=== PATIENT | female | born 1970 | race Caucasian/White ===

== ENCOUNTER 2016-09-30 10:52 | Outpatient (CLI) | payer OTHER ==
[~2016-09-30 10:52] MED LIST: SOM350 PO
[2016-09-30 11:44] LABS: BILIRUBIN,URINE NEGATIVE (NEGATIVE); BLOOD, URINE NEGATIVE (NEGATIVE); CLARITY/URINE CLEAR (CLEAR); COLOR,URINE YELLOW (YELLOW); GLUCOSE,URINE NEGATIVE (NEGATIVE); KETONES,URINE NEGATIVE (NEGATIVE); LEUKOCYTE ESTERASE ,URINE NEGATIVE (NEGATIVE); NITRITE, URINE NEGATIVE (NEGATIVE); PH,URINE 7.5 (5.0-8.0); PROTEIN URINE TRACE (NEGATIVE)
[2016-09-30 11:47] LABS: BASOPHILS % (AUTO) 0.6 % (0.0-2.0); EOSINOPHILS # (AUTO) 0.1 K/uL (0.0-0.4); EOSINOPHILS % (AUTO) 0.7 % (0.0-4.0); HEMATOCRIT 37.2 % (36-48); HEMOGLOBIN 12.2 g/dL (12.0-16.0); LYMPHOCYTES # (AUTO) 1.8 K/uL (1.0-5.5); LYMPHOCYTES % (AUTO) 24.3 % (20.5-51.5); MEAN CORPUSCULAR HEMOGLOBIN 26 pg (27-31); MEAN CORPUSCULAR HGB CONC 33 % (32-36); MEAN CORPUSCULAR VOLUME 78 fL (79.0-98.0); MONOCYTES # (AUTO) 0.5 K/uL (0.0-1.0); MONOCYTES % (AUTO) 6.6 % (1.7-9.3); NEUTROPHILS # (AUTO) 4.9 K/uL (1.8-7.7); NEUTROPHILS % (AUTO) 67.8 % (40.0-70.0); PLATELET COUNT (AUTO) 263 K/uL (130-430); RED BLOOD CELL COUNT(AUTO) 4.75 MIL/uL (4.2-6.2); RED CELL DISTRIBUTION WIDTH 14.9 % (9.0-15.0); WHITE BLOOD COUNT (AUTO) 7.3 K/uL (4.8-10.8)
[2016-09-30 12:24] LABS: ERYTHROCYTE SEDIMENTATION RATE 14 MM/HR (0-20)
[2016-09-30 12:36] LABS: CALCIUM 8.9 mg/dL (8.4-11.0); CREATININE 0.71 mg/dL (0.55-1.30); THYROID STIMULATING HORMONE 0.57 uIu/mL (0.34-4.82); TOTAL BILIRUBIN 0.3 mg/dL (0.0-1.0); TOTAL PROTEIN, SERUM 8.1 g/dL (6.4-8.3); URIC ACID 4.8 mg/dL (2.4-7.0)
[2016-10-02 13:25] LABS: HEMOGLOBIN A1C 5.7 % (4.8-5.6)
== END 2016-09-30 19:46 | disposition home or self-care (01) ==
LOC: SRD 10:52
PROVIDERS: ATTEND Internal Medicine
DX: Z00.01 Encounter for general adult medical examination with abnormal findings (principal); M41.84 Other forms of scoliosis, thoracic region; R79.89 Other specified abnormal findings of blood chemistry
CPT/HCPCS: 36415; 72082; 80053; 80061; 81003; 82306; 82607; 83036; 83735-TC; 84443-TC; 84550-TC; 85025; 85651-TC

== ENCOUNTER 2017-02-02 15:35 | Emergency (ER) | payer OTHER ==
[~2017-02-02] VITALS: Ht 167.6 cm; Wt 79.4 kg
[2017-02-02 15:47] VITALS: BP_SYST 155
[2017-02-02] MEDS ORDERED: MECLIZINE HCL 25 MG TABLET (ANITVERT) PO ONE (16:15)
[2017-02-02] MEDS ORDERED: traMADol HCL HCL 50 MG TABLET (ULTRAM) PO ONE (17:15)
[2017-02-02 17:20] VITALS: BP_SYST 153
== END 2017-02-02 17:20 | disposition home or self-care (01) ==
LOC: SED 15:35
DX: H81.10 Benign paroxysmal vertigo, unspecified ear (principal); R51 Headache; J45.909 Unspecified asthma, uncomplicated; I10 Essential (primary) hypertension; W01.10XA Fall on same level from slipping, tripping and stumbling with subsequent striking against unspecified object, initial encounter; Y93.89 Activity, other specified; Y92.89 Other specified places as the place of occurrence of the external cause; Y99.8 Other external cause status
CPT/HCPCS: 70450; 99284; J8597

== ENCOUNTER 2017-04-09 12:14 | Outpatient (CLI) | payer OTHER ==
[2017-04-09 13:01] LABS: BASOPHILS # (AUTO) 0.1 K/uL (0.0-0.2); BASOPHILS % (AUTO) 0.8 % (0.0-2.0); EOSINOPHILS # (AUTO) 0.1 K/uL (0.0-0.4); EOSINOPHILS % (AUTO) 0.7 % (0.0-4.0); HEMATOCRIT 35.3 % (36-48); HEMOGLOBIN 11.6 g/dL (12.0-16.0); LYMPHOCYTES # (AUTO) 1.6 K/uL (1.0-5.5); LYMPHOCYTES % (AUTO) 20.4 % (20.5-51.5); MEAN CORPUSCULAR HEMOGLOBIN 25 pg (27-31); MEAN CORPUSCULAR HGB CONC 33 % (32-36); MEAN CORPUSCULAR VOLUME 77 fL (79.0-98.0); MONOCYTES # (AUTO) 0.4 K/uL (0.0-1.0); MONOCYTES % (AUTO) 5.7 % (1.7-9.3); NEUTROPHILS # (AUTO) 5.7 K/uL (1.8-7.7); NEUTROPHILS % (AUTO) 72.4 % (40.0-70.0); PLATELET COUNT (AUTO) 283 K/uL (130-430); RED BLOOD CELL COUNT(AUTO) 4.59 MIL/uL (4.2-6.2); RED CELL DISTRIBUTION WIDTH 16.8 % (9.0-15.0); WHITE BLOOD COUNT (AUTO) 7.9 K/uL (4.8-10.8)
[2017-04-09 13:18] LABS: ALANINE AMINOTRANSFERASE 27 U/L (12-78); ANION GAP 3 (5-15); ASPARTATE AMINOTRANSFERASE 24 U/L (10-37); C-REACTIVE PROTEIN QUANT < 0.2 mg/dL (0-0.5); CALCIUM 9.4 mg/dL (8.4-11.0); CHLORIDE 104 mmol/L (98-107); CHOLESTEROL 198 mg/dL (<200); CREATININE 0.77 mg/dL (0.55-1.30); GLUCOSE 95 mg/dL (70-99); HDL CHOLESTEROL 56 mg/dL (>55); LDL CHOLESTEROL 122 mg/dL (<100); POTASSIUM 4.5 mmol/L (3.5-5.1); SODIUM SERUM 137 mmol/L (136-145); TOTAL BILIRUBIN 0.3 mg/dL (0.0-1.0); TRIGLYCERIDES 119 mg/dL (30-150); UREA NITROGEN, BLOOD 13 mg/dL (8-21); URIC ACID 4.6 mg/dL (2.4-7.0)
[2017-04-09 13:25] LABS: GFR AFRICAN AMERICAN 103 mL/min (>90)
[2017-04-09 13:53] LABS: ERYTHROCYTE SEDIMENTATION RATE 16 MM/HR (0-20)
[2017-04-10 08:06] LABS: HEMOGLOBIN A1C 5.5 % (4.8-5.6)
== END 2017-04-09 20:09 | disposition home or self-care (01) ==
LOC: SLB 12:14
PROVIDERS: ATTEND Orthopaedic Surgery
DX: M17.0 Bilateral primary osteoarthritis of knee (principal)
CPT/HCPCS: 36415; 80053; 80061; 82306; 83036; 84550-TC; 85025; 85651-TC; 86140

== ENCOUNTER 2017-07-21 09:28 | Emergency (ER) | payer OTHER ==
[~2017-07-21] VITALS: Ht 167.6 cm; Wt 81.6 kg
[2017-07-21 09:28] VITALS: BP_SYST 142
--- NOTE | 2017-07-21 09:35 | NUR ---
Pt placed in bed 7
--- NOTE | 2017-07-21 09:40 | NUR ---
Pt complains of sore throat, cough, fever, body aches since Sunday. Pt states was cleaning Sunday night with mold and did not wear a mask, then next day was feeling bad. Denies n/v or cp, states has some SOB when coughing. No other injuries/complaints per pt or noted.
--- NOTE | 2017-07-21 09:40 | NUR ---
ER at bedside examining patient.
--- NOTE | 2017-07-21 09:50 | NUR ---
RT is at bedside giving a breathing treatment, tolerated well
--- NOTE | 2017-07-21 09:59 | NUR ---
Medication was given to pt, tolerated well
[2017-07-21] MEDS ORDERED: IPRATROPIUM BROM 0.5 MG/2.5 ML VIAL.NEB (ATROVENT) IH ONE (10:00)
[2017-07-21] MEDS ORDERED: ALBUTEROL SULFATE 0.083% 2.5 MG/3 ML VIAL.NEB IH ONE (10:00)
[2017-07-21] MEDS ORDERED: methylPREDNISolone SOD SUCC/PF 62.5 MG/ML VIAL IM ONE (10:00)
[2017-07-21 10:06] LABS: BASOPHILS % (AUTO) 0.5 % (0.0-2.0); EOSINOPHILS % (AUTO) 0.2 % (0.0-4.0); HEMATOCRIT 36.3 % (36-48); HEMOGLOBIN 12.4 g/dL (12.0-16.0); LYMPHOCYTES # (AUTO) 0.7 K/uL (1.0-5.5); LYMPHOCYTES % (AUTO) 6.9 % (20.5-51.5); MEAN CORPUSCULAR HEMOGLOBIN 26 pg (27-31); MEAN CORPUSCULAR HGB CONC 34 % (32-36); MEAN CORPUSCULAR VOLUME 77 fL (79.0-98.0); MONOCYTES # (AUTO) 0.5 K/uL (0.0-1.0); MONOCYTES % (AUTO) 5.4 % (1.7-9.3); NEUTROPHILS # (AUTO) 8.7 K/uL (1.8-7.7); PLATELET COUNT (AUTO) 269 K/uL (130-430); RED CELL DISTRIBUTION WIDTH 15.1 % (9.0-15.0); WHITE BLOOD COUNT (AUTO) 9.9 K/uL (4.8-10.8)
[2017-07-21 10:11] LABS: INFLUENZA A&B ANTIGEN SCREEN NEGATIVE FOR A & B (NEGATIVE); STREPTOCOCCUS A SCREEN (RAPID) NEGATIVE (NEGATIVE)
[2017-07-21 10:14] LABS: CALCIUM 9.2 mg/dL (8.4-11.0); CREATININE 0.67 mg/dL (0.55-1.30); POTASSIUM 4.3 mmol/L (3.5-5.1)
[2017-07-21 10:19] LABS: ALBUMIN 3.8 g/dL (3.4-4.8); TOTAL BILIRUBIN 0.3 mg/dL (0.0-1.0)
--- NOTE | 2017-07-21 10:25 | NUR ---
Tylenol was given for temp of 100.0, Dr Hayden is aware and pt will be sent with ATB and tylenol
--- NOTE | 2017-07-21 10:29 | NUR ---
Patient given written and verbal discharge instructions and verbalizes understanding. ER MD discussed with patient the results and treatment provided. Patient in stable condition. ID arm band removed. Rx of tylenol, prednisone and zithromax given. Patient educated on pain management and to follow up with PMD. Pain Scale 3. Opportunity for questions provided and answered.
[2017-07-21] MEDS ORDERED: ACETAMINOPHEN 500 MG TABLET PO ONE (10:30)
[2017-07-21 10:31] VITALS: BP_SYST 132
== END 2017-07-21 10:31 | disposition home or self-care (01) ==
LOC: SED 09:28
DX: J01.90 Acute sinusitis, unspecified (principal); I10 Essential (primary) hypertension; J45.909 Unspecified asthma, uncomplicated; Z88.8 Allergy status to other drugs, medicaments and biological substances
CPT/HCPCS: 36415; 80053; 85025; 86403; 86710; 87081; 94640; 96372; 99284; J2930

== ENCOUNTER 2017-09-25 11:22 | Outpatient (CLI) | payer OTHER | END 2017-09-25 22:13 | disposition home or self-care (01) | LOC: SMA 11:22 | PROVIDERS: ATTEND Specialist | DX: Z12.31 Encounter for screening mammogram for malignant neoplasm of breast (principal) | CPT/HCPCS: 77067 ==

== ENCOUNTER 2017-09-26 10:34 | Outpatient (CLI) | payer OTHER | END 2017-09-26 20:36 | disposition home or self-care (01) | LOC: SUS 10:34 | PROVIDERS: ATTEND Specialist | DX: N92.0 Excessive and frequent menstruation with regular cycle (principal); I10 Essential (primary) hypertension; J45.909 Unspecified asthma, uncomplicated; N92.6 Irregular menstruation, unspecified | CPT/HCPCS: 76830-TC; 76857 ==

== ENCOUNTER 2018-03-15 06:25 | Outpatient (CLI) | payer OTHER ==
[2018-03-15 08:43] LABS: HEMATOCRIT 36.7 % (36-48); HEMOGLOBIN 12.3 g/dL (12.0-16.0); RED BLOOD CELL COUNT(AUTO) 4.51 MIL/uL (4.2-6.2); WHITE BLOOD COUNT (AUTO) 8.3 K/uL (4.8-10.8)
[2018-03-15 08:44] LABS: BASOPHILS % (AUTO) 1.1 % (0.0-2.0); EOSINOPHILS % (AUTO) 1.5 % (0.0-4.0); LYMPHOCYTES # (AUTO) 2.1 K/uL (1.0-5.5); LYMPHOCYTES % (AUTO) 24.9 % (20.5-51.5); MEAN CORPUSCULAR HEMOGLOBIN 27 pg (27-31); MEAN CORPUSCULAR HGB CONC 34 % (32-36); MEAN CORPUSCULAR VOLUME 81 fL (79.0-98.0); MONOCYTES # (AUTO) 0.5 K/uL (0.0-1.0); MONOCYTES % (AUTO) 6.5 % (1.7-9.3); NEUTROPHILS # (AUTO) 5.5 K/uL (1.8-7.7); PLATELET COUNT (AUTO) 331 K/uL (130-430); RED CELL DISTRIBUTION WIDTH 14.4 % (9.0-15.0)
[2018-03-15 08:45] LABS: BASOPHILS # (AUTO) 0.1 K/uL (0.0-0.2); EOSINOPHILS # (AUTO) 0.1 K/uL (0.0-0.4)
[2018-03-15 08:49] LABS: POTASSIUM 4.3 mmol/L (3.5-5.1)
[2018-03-15 08:51] LABS: ALBUMIN 3.6 g/dL (3.4-4.8); CALCIUM 9.1 mg/dL (8.4-11.0); CREATININE 0.79 mg/dL (0.55-1.30); TOTAL BILIRUBIN 0.3 mg/dL (0.0-1.0)
[2018-03-15 08:52] LABS: THYROID STIMULATING HORMONE 4.43 uIu/mL (0.34-4.82)
[2018-03-16 07:35] LABS: HEMOGLOBIN A1C 5.5 % (4.8-5.6)
== END 2018-03-15 19:15 | disposition home or self-care (01) ==
LOC: SLB 06:25
PROVIDERS: ATTEND Internal Medicine
DX: Z00.00 Encounter for general adult medical examination without abnormal findings (principal)
CPT/HCPCS: 36415; 80053; 80061; 82306; 82607; 83036; 84443-TC; 85025

== ENCOUNTER 2018-04-18 12:32 | Emergency (ER) | payer OTHER ==
[~2018-04-18] VITALS: Ht 170.2 cm; Wt 86.2 kg
[2018-04-18 12:35] VITALS: BP_SYST 145
[2018-04-18] MEDS ORDERED: cefTRIAXone 1 GM IVPB PREMIX 50 ML IV ONE (14:45)
[2018-04-18] MEDS ORDERED: ONDANSETRON HCL 4 MG/2 ML VIAL IVP ONE (14:45)
[2018-04-18] MEDS ORDERED: ALBUTEROL SULFATE 0.083% 2.5 MG/3 ML VIAL.NEB IH ONE (14:45)
[2018-04-18] MEDS ORDERED: IPRATROPIUM BROM 0.5 MG/2.5 ML VIAL.NEB (ATROVENT) IH ONE (14:45)
[2018-04-18] MEDS ORDERED: MORPHINE 2 MG/ML INJ. SYRINGE IVP ONE (14:45)
[2018-04-18 15:14] LABS: BASOPHILS % (AUTO) 0.5 % (0.0-2.0); EOSINOPHILS # (AUTO) 0.1 K/uL (0.0-0.4); EOSINOPHILS % (AUTO) 0.8 % (0.0-4.0); HEMATOCRIT 34.6 % (36-48); HEMOGLOBIN 11.4 g/dL (12.0-16.0); LYMPHOCYTES # (AUTO) 1.2 K/uL (1.0-5.5); LYMPHOCYTES % (AUTO) 17.1 % (20.5-51.5); MEAN CORPUSCULAR HEMOGLOBIN 25 pg (27-31); MEAN CORPUSCULAR HGB CONC 33 % (32-36); MEAN CORPUSCULAR VOLUME 76 fL (79.0-98.0); MONOCYTES # (AUTO) 0.7 K/uL (0.0-1.0); MONOCYTES % (AUTO) 9.9 % (1.7-9.3); NEUTROPHILS # (AUTO) 5.2 K/uL (1.8-7.7); NEUTROPHILS % (AUTO) 71.7 % (40.0-70.0); PLATELET COUNT (AUTO) 255 K/uL (130-430); RED BLOOD CELL COUNT(AUTO) 4.55 MIL/uL (4.2-6.2); RED CELL DISTRIBUTION WIDTH 15.1 % (9.0-15.0); WHITE BLOOD COUNT (AUTO) 7.2 K/uL (4.8-10.8)
[2018-04-18 15:15] LABS: BILIRUBIN,URINE NEGATIVE (NEGATIVE); BLOOD, URINE NEGATIVE (NEGATIVE); CLARITY/URINE CLEAR (CLEAR); COLOR,URINE YELLOW (YELLOW); GLUCOSE,URINE NEGATIVE (NEGATIVE); KETONES,URINE NEGATIVE (NEGATIVE); LEUKOCYTE ESTERASE ,URINE NEGATIVE (NEGATIVE); NITRITE, URINE NEGATIVE (NEGATIVE); PH,URINE 5.5 (5.0-8.0); PROTEIN URINE NEGATIVE (NEGATIVE); UROBILINOGEN,URINE 0.2 (0.2-1.0)
[2018-04-18 15:29] LABS: CALCIUM 8.6 mg/dL (8.4-11.0); CREATININE 0.62 mg/dL (0.55-1.30); POTASSIUM 4.2 mmol/L (3.5-5.1)
[2018-04-18 15:32] LABS: INR 0.9 (0.8-1.2); PROTHROMBIN TIME 9.3 SECS (9.5-12.5)
[2018-04-18 15:39] LABS: ALBUMIN 3.6 g/dL (3.4-4.8); TOTAL BILIRUBIN 0.2 mg/dL (0.0-1.0)
[2018-04-18] MEDS ORDERED: MORPHINE 4 MG/ML INJ. SYRINGE IVP ONE (16:00)
[2018-04-18] MEDS ORDERED: PREDNISONE 20 MG TABLET PO ONE (16:15)
[2018-04-18] MEDS ORDERED: PREDNISONE 20 MG TABLET ONE (16:22)
[2018-04-18 16:41] VITALS: BP_SYST 145
== END 2018-04-18 16:41 | disposition home or self-care (01) ==
LOC: SED 12:32
DX: J45.901 Unspecified asthma with (acute) exacerbation (principal); H66.90 Otitis media, unspecified, unspecified ear; I10 Essential (primary) hypertension; Z88.8 Allergy status to other drugs, medicaments and biological substances
CPT/HCPCS: 36415; 71045; 80053; 81003; 83605; 81025; 84702; 85025; 85610; 85730; 87040; 87086; 94640; 96361; 96365; 96375; 99284; J0696; J2270; J2405; J7512; J7613

== ENCOUNTER 2018-06-04 08:59 | Outpatient (CLI) | payer OTHER ==
[2018-06-04 10:02] LABS: ALBUMIN 3.9 g/dL (3.4-4.8); C-REACTIVE PROTEIN QUANT 0.7 mg/dL (0-0.5); CALCIUM 9.6 mg/dL (8.4-11.0); CREATININE 0.71 mg/dL (0.55-1.30); POTASSIUM 4.1 mmol/L (3.5-5.1); TOTAL BILIRUBIN 0.3 mg/dL (0.0-1.0)
[2018-06-04 10:04] LABS: RED BLOOD CELL COUNT(AUTO) 4.97 MIL/uL (4.2-6.2); WHITE BLOOD COUNT (AUTO) 6.5 K/uL (4.8-10.8)
[2018-06-04 10:06] LABS: HEMATOCRIT 38.4 % (36-48); HEMOGLOBIN 12.3 g/dL (12.0-16.0); LYMPHOCYTES % (AUTO) 27.7 % (20.5-51.5); MEAN CORPUSCULAR HEMOGLOBIN 25 pg (27-31); MEAN CORPUSCULAR HGB CONC 32 % (32-36); MEAN CORPUSCULAR VOLUME 77 fL (79.0-98.0); MONOCYTES % (AUTO) 7.5 % (1.7-9.3); PLATELET COUNT (AUTO) 268 K/uL (130-430); RED CELL DISTRIBUTION WIDTH 16.4 % (9.0-15.0)
[2018-06-04 10:07] LABS: BASOPHILS # (AUTO) 0.1 K/uL (0.0-0.2); BASOPHILS % (AUTO) 1.1 % (0.0-2.0); EOSINOPHILS # (AUTO) 0.2 K/uL (0.0-0.4); EOSINOPHILS % (AUTO) 2.3 % (0.0-4.0); LYMPHOCYTES # (AUTO) 1.6 K/uL (1.0-5.5); MONOCYTES # (AUTO) 0.5 K/uL (0.0-1.0); NEUTROPHILS # (AUTO) 4.2 K/uL (1.8-7.7)
[2018-06-04 10:44] LABS: NEUTROPHILS % (AUTO) 64.4 % (40.0-70.0)
[2018-06-04 10:46] LABS: ERYTHROCYTE SEDIMENTATION RATE 14 MM/HR (0-20)
[2018-06-05 09:28] LABS: RA LATEX TURBID 10.6 IU/mL (0.0-13.9)
[2018-06-05 18:10] LABS: ANTI NUCLEAR AB WITH REFLEX Negative (Negative)
== END 2018-06-05 07:09 | disposition home or self-care (01) ==
LOC: SLB 08:59
PROVIDERS: ATTEND Internal Medicine
DX: I10 Essential (primary) hypertension (principal); M54.40 Lumbago with sciatica, unspecified side; E55.9 Vitamin D deficiency, unspecified
CPT/HCPCS: 36415; 80053; 82306; 83735-TC; 85025; 85651-TC; 86038; 86140; 86431

== ENCOUNTER 2018-10-19 11:10 | Outpatient (CLI) | payer OTHER ==
[2018-10-19 12:20] LABS: BASOPHILS # (AUTO) 0.1 K/uL (0.0-0.2); EOSINOPHILS # (AUTO) 0.1 K/uL (0.0-0.4); EOSINOPHILS % (AUTO) 1.6 % (0.0-4.0); HEMOGLOBIN 11.7 g/dL (12.0-16.0); LYMPHOCYTES # (AUTO) 1.9 K/uL (1.0-5.5); LYMPHOCYTES % (AUTO) 34.6 % (20.5-51.5); MEAN CORPUSCULAR HEMOGLOBIN 26 pg (27-31); MEAN CORPUSCULAR HGB CONC 33 % (32-36); MEAN CORPUSCULAR VOLUME 79 fL (79.0-98.0); MONOCYTES # (AUTO) 0.4 K/uL (0.0-1.0); MONOCYTES % (AUTO) 8.1 % (1.7-9.3); NEUTROPHILS % (AUTO) 54.7 % (40.0-70.0); PLATELET COUNT (AUTO) 240 K/uL (130-430); RED BLOOD CELL COUNT(AUTO) 4.59 MIL/uL (4.2-6.2); RED CELL DISTRIBUTION WIDTH 17.7 % (9.0-15.0); WHITE BLOOD COUNT (AUTO) 5.4 K/uL (4.8-10.8)
[2018-10-19 13:01] LABS: ALBUMIN 3.6 g/dL (3.4-4.8); C-REACTIVE PROTEIN QUANT 0.3 mg/dL (0-0.5); CALCIUM 9.2 mg/dL (8.4-11.0); CREATININE 0.64 mg/dL (0.55-1.30); POTASSIUM 4.8 mmol/L (3.5-5.1); THYROID STIMULATING HORMONE 1.81 uIu/mL (0.34-4.82); TOTAL BILIRUBIN 0.4 mg/dL (0.0-1.0); URIC ACID 3.6 mg/dL (2.4-7.0)
[2018-10-19 13:16] LABS: ERYTHROCYTE SEDIMENTATION RATE 13 MM/HR (0-20)
[2018-10-20 08:07] LABS: RA LATEX TURBID <10.0 IU/mL (0.0-13.9); THYROID PEROXIDASE (TPO) AB 12 IU/mL (0-34)
[2018-10-22 09:06] LABS: COMPLEMENT C4, SERUM 32 mg/dL (14-44)
[2018-10-22 12:06] LABS: ANTI-MITOCHONDRIAL AB <20.0 Units (0.0-20.0); ANTI-PARIETAL CELL AB 3.3 Units (0.0-20.0); ANTI-SMOOTH MUSCLE AB 9 Units (0-19)
[2018-10-22 19:09] LABS: CCP IgG AB 6 units (0-19)
[2018-10-22 20:06] LABS: ANTI-DNA(DS) AB, QN <1 IU/mL (0-9); ANTI-NUCLEAR AB DIRECT Negative (Negative); SMITH ABS <0.2 AI (0.0-0.9)
== END 2018-10-19 14:00 | disposition home or self-care (01) ==
LOC: SLB 11:10
PROVIDERS: ATTEND Internal Medicine
DX: E55.9 Vitamin D deficiency, unspecified (principal); E56.9 Vitamin deficiency, unspecified; M19.90 Unspecified osteoarthritis, unspecified site; J45.909 Unspecified asthma, uncomplicated
CPT/HCPCS: 36415; 80053; 80061; 82306; 82607; 83735-TC; 84443-TC; 84550-TC; 85025; 85651-TC; 86140; 86200; 86431

== ENCOUNTER 2019-01-21 13:36 | Emergency (ER) | payer OTHER ==
[~2019-01-21] VITALS: Ht 170.2 cm; Wt 86.2 kg
[2019-01-21 13:36] VITALS: BP_SYST 137
--- NOTE | 2019-01-21 13:40 | NUR ---
Patient triaged and placed in waiting room. VSS and patient appears in no acute distress at this time. Accompanied by SPOUSE, awaiting available bed, and MD notified of need for MSE.
--- NOTE | 2019-01-21 14:32 | NUR ---
BROUGHT BACK TO BED #4 AND REPORT GIVEN TO LILIYA
--- NOTE | 2019-01-21 14:48 | NUR ---
Patient is awake, alert, and oriented x4. Patient reports swollen left lower jaw since yesterday, no it has moved over to right lower jaw. Patient denies nausea, vomiting and diarrhea.
--- NOTE | 2019-01-21 14:55 | NUR ---
ER [place] Mejia examining patient.
[2019-01-21] MEDS ORDERED: AMOXICILLIN/CLAVULANATE POTASSIUM 875 MG TABLET PO ONE (15:00)
[2019-01-21] MEDS ORDERED: HYDROcodone/ACETAMIN 7.5-325 MG TAB PO ONE (15:00)
[2019-01-21] MEDS ORDERED: KETOROLAC TROMETHAMINE 60 MG/2 ML VIAL IM ONE (15:00)
[2019-01-21 15:10] VITALS: BP_SYST 128
--- NOTE | 2019-01-21 15:10 | NUR ---
Patient given written and verbal discharge instructions and verbalizes understanding. ER MD discussed with patient the results and treatment provided. Patient in stable condition. ID arm band removed. Rx of augmentin, motrin, norco given. Patient educated on pain management and to follow up with PMD. Pain Scale 8/10, FLASH WELDER Jackie aware. Opportunity for questions provided and answered. Medication side effect fact sheet provided.
== END 2019-01-21 15:10 | disposition home or self-care (01) ==
LOC: SED 13:36
DX: K11.21 Acute sialoadenitis (principal); I10 Essential (primary) hypertension; J45.909 Unspecified asthma, uncomplicated; Z79.899 Other long term (current) drug therapy
CPT/HCPCS: 96372; 99283; J1885

== ENCOUNTER 2019-04-12 17:41 | Outpatient (CLI) | payer OTHER ==
[2019-04-12 18:19] LABS: BENZODIAZEPINE, URINE POSITIVE (NEG <=150)
[2019-04-12 18:33] LABS: BARBITURATE, URINE NEGATIVE (NEG <=200); CANNABINOID, URINE NEGATIVE (NEG <=50); COCAINE, URINE NEGATIVE (NEG <=150); METHAMPHETAMINES SCREEN,URINE NEGATIVE (NEG <=500); OPIATE, URINE NEGATIVE (NEG <=100); PHENCYCLIDINE SCREEN,URINE NEGATIVE (NEG <=25); URINE AMPHETAMINE NEGATIVE (NEG <=500); URINE METHADONE POSITIVE (NEG <=200)
[2019-04-12 18:34] LABS: UR TRICYCLIC ANTIDEPRESSANTS NEGATIVE (NEG <=300); URINE OXYCODONE SCREEN NEGATIVE (NEG <=100); URINE PROPOXYPHENE SCREEN NEGATIVE (NEG <=300)
== END 2019-04-12 20:48 | disposition home or self-care (01) ==
LOC: SLB 17:41
DX: G89.4 Chronic pain syndrome (principal); M25.569 Pain in unspecified knee
CPT/HCPCS: 80307

== ENCOUNTER 2019-08-29 12:41 | Outpatient (CLI) | payer OTHER ==
[2019-08-29 13:29] LABS: BARBITURATE, URINE NEGATIVE (NEG <=200); BENZODIAZEPINE, URINE NEGATIVE (NEG <=150); CANNABINOID, URINE NEGATIVE (NEG <=50); COCAINE, URINE NEGATIVE (NEG <=150); METHAMPHETAMINES SCREEN,URINE NEGATIVE (NEG <=500); OPIATE, URINE POSITIVE (NEG <=100); PHENCYCLIDINE SCREEN,URINE NEGATIVE (NEG <=25); UR TRICYCLIC ANTIDEPRESSANTS NEGATIVE (NEG <=300); URINE AMPHETAMINE NEGATIVE (NEG <=500); URINE METHADONE POSITIVE (NEG <=200); URINE OXYCODONE SCREEN NEGATIVE (NEG <=100); URINE PROPOXYPHENE SCREEN NEGATIVE (NEG <=300)
== END 2019-08-29 21:11 | disposition home or self-care (01) ==
LOC: SLB 12:41
PROVIDERS: ATTEND Anesthesiology Pain Medicine
DX: M54.5 Low back pain (principal)
CPT/HCPCS: 80307

== ENCOUNTER 2020-01-05 12:06 | Outpatient (CLI) | payer OTHER ==
[2020-01-05 12:41] LABS: BASOPHILS % (AUTO) 0.7 % (0.0-2.0); EOSINOPHILS # (AUTO) 0.1 K/uL (0.0-0.4); EOSINOPHILS % (AUTO) 1.6 % (0.0-4.0); HEMATOCRIT 38.2 % (36-48); HEMOGLOBIN 12.4 g/dL (12.0-16.0); LYMPHOCYTES # (AUTO) 1.7 K/uL (1.0-5.5); LYMPHOCYTES % (AUTO) 23.8 % (20.5-51.5); MEAN CORPUSCULAR HEMOGLOBIN 26 pg (27-31); MEAN CORPUSCULAR HGB CONC 33 % (32-36); MEAN CORPUSCULAR VOLUME 80 fL (79.0-98.0); MONOCYTES # (AUTO) 0.7 K/uL (0.0-1.0); MONOCYTES % (AUTO) 8.9 % (1.7-9.3); NEUTROPHILS # (AUTO) 4.8 K/uL (1.8-7.7); PLATELET COUNT (AUTO) 272 K/uL (130-430); RED CELL DISTRIBUTION WIDTH 15.8 % (9.0-15.0); WHITE BLOOD COUNT (AUTO) 7.3 K/uL (4.8-10.8)
[2020-01-05 12:51] LABS: BARBITURATE, URINE NEGATIVE (NEG <=200); BENZODIAZEPINE, URINE NEGATIVE (NEG <=150); CANNABINOID, URINE NEGATIVE (NEG <=50); COCAINE, URINE NEGATIVE (NEG <=150); METHAMPHETAMINES SCREEN,URINE NEGATIVE (NEG <=500); URINE AMPHETAMINE NEGATIVE (NEG <=500)
[2020-01-05 12:52] LABS: OPIATE, URINE POSITIVE (NEG <=100); PHENCYCLIDINE SCREEN,URINE NEGATIVE (NEG <=25); UR TRICYCLIC ANTIDEPRESSANTS NEGATIVE (NEG <=300); URINE OXYCODONE SCREEN NEGATIVE (NEG <=100); URINE PROPOXYPHENE SCREEN NEGATIVE (NEG <=300)
[2020-01-05 12:54] LABS: URINE METHADONE POSITIVE (NEG <=200)
[2020-01-05 14:07] LABS: POTASSIUM 4.7 mmol/L (3.5-5.1)
[2020-01-05 14:08] LABS: CALCIUM 8.9 mg/dL (8.4-11.0); CREATININE 0.73 mg/dL (0.55-1.30); THYROID STIMULATING HORMONE 2.14 uIu/mL (0.36-3.74); TOTAL BILIRUBIN 0.3 mg/dL (0.0-1.0); URIC ACID 5.1 mg/dL (2.4-7.0)
[2020-01-06 09:01] LABS: HEMOGLOBIN A1C 5.8 % (4.8-5.6)
== END 2020-01-05 20:52 | disposition home or self-care (01) ==
LOC: SDS 12:06
PROVIDERS: ATTEND Internal Medicine
DX: I10 Essential (primary) hypertension (principal); E66.09 Other obesity due to excess calories; E55.9 Vitamin D deficiency, unspecified; L60.8 Other nail disorders; M54.5 Low back pain
CPT/HCPCS: 36415; 80053; 80061; 80307; 82306; 82607; 83036; 83735-TC; 84443-TC; 84550-TC; 85025

== ENCOUNTER 2020-04-24 10:13 | Outpatient (CLI) | payer OTHER ==
[2020-04-24 11:16] LABS: BASOPHILS # (AUTO) 0.1 K/uL (0.0-0.2); BASOPHILS % (AUTO) 0.9 % (0.0-2.0); EOSINOPHILS # (AUTO) 0.1 K/uL (0.0-0.4); EOSINOPHILS % (AUTO) 1.5 % (0.0-4.0); HEMATOCRIT 35.5 % (36-48); HEMOGLOBIN 11.5 g/dL (12.0-16.0); LYMPHOCYTES # (AUTO) 1.2 K/uL (1.0-5.5); LYMPHOCYTES % (AUTO) 19.1 % (20.5-51.5); MEAN CORPUSCULAR HEMOGLOBIN 25 pg (27-31); MEAN CORPUSCULAR HGB CONC 32 % (32-36); MEAN CORPUSCULAR VOLUME 78 fL (79.0-98.0); MONOCYTES # (AUTO) 0.5 K/uL (0.0-1.0); MONOCYTES % (AUTO) 8.7 % (1.7-9.3); NEUTROPHILS # (AUTO) 4.3 K/uL (1.8-7.7); NEUTROPHILS % (AUTO) 69.8 % (40.0-70.0); PLATELET COUNT (AUTO) 253 K/uL (130-430); RED BLOOD CELL COUNT(AUTO) 4.54 MIL/uL (4.2-6.2); RED CELL DISTRIBUTION WIDTH 15.6 % (9.0-15.0); WHITE BLOOD COUNT (AUTO) 6.1 K/uL (4.8-10.8)
[2020-04-24 11:42] LABS: ALBUMIN 3.8 g/dL (3.4-4.8); CALCIUM 8.8 mg/dL (8.4-11.0); CREATININE 0.7 mg/dL (0.55-1.30); THYROID STIMULATING HORMONE 1.39 uIu/mL (0.36-3.74); TOTAL BILIRUBIN 0.4 mg/dL (0.0-1.0)
[2020-04-24 12:20] LABS: BARBITURATE, URINE NEGATIVE (NEG <=200); BENZODIAZEPINE, URINE POSITIVE (NEG <=150); CANNABINOID, URINE NEGATIVE (NEG <=50); COCAINE, URINE NEGATIVE (NEG <=150); METHAMPHETAMINES SCREEN,URINE NEGATIVE (NEG <=500); OPIATE, URINE POSITIVE (NEG <=100); PHENCYCLIDINE SCREEN,URINE NEGATIVE (NEG <=25); UR TRICYCLIC ANTIDEPRESSANTS NEGATIVE (NEG <=300); URINE AMPHETAMINE NEGATIVE (NEG <=500); URINE METHADONE POSITIVE (NEG <=200); URINE OXYCODONE SCREEN NEGATIVE (NEG <=100); URINE PROPOXYPHENE SCREEN NEGATIVE (NEG <=300)
== END 2020-04-24 19:55 | disposition home or self-care (01) ==
LOC: SLB 10:13
PROVIDERS: ATTEND Internal Medicine
DX: Z00.00 Encounter for general adult medical examination without abnormal findings (principal); M54.5 Low back pain
CPT/HCPCS: 36415; 80053; 80061; 80307; 82306; 82607; 83036; 83735-TC; 84443-TC; 85025

== ENCOUNTER 2020-06-25 13:02 | Outpatient (CLI) | payer OTHER | END 2020-06-25 20:25 | disposition home or self-care (01) | LOC: SRD 13:02 | PROVIDERS: ATTEND Internal Medicine | DX: M19.90 Unspecified osteoarthritis, unspecified site (principal) | CPT/HCPCS: 72170-TC; 73502 ==

== ENCOUNTER 2020-08-02 06:35 | Inpatient (IN) | payer OTHER, SELFPAY ==
[2020-07-27 13:19] LABS: BASOPHILS % (AUTO) 0.5 % (0.0-2.0); EOSINOPHILS % (AUTO) 0.4 % (0.0-4.0); HEMATOCRIT 39.3 % (36-48); HEMOGLOBIN 13.1 g/dL (12.0-16.0); LYMPHOCYTES # (AUTO) 1.8 K/uL (1.0-5.5); LYMPHOCYTES % (AUTO) 20.2 % (20.5-51.5); MEAN CORPUSCULAR HEMOGLOBIN 27 pg (27-31); MEAN CORPUSCULAR HGB CONC 33 % (32-36); MEAN CORPUSCULAR VOLUME 81 fL (79.0-98.0); MONOCYTES # (AUTO) 0.7 K/uL (0.0-1.0); MONOCYTES % (AUTO) 8.5 % (1.7-9.3); NEUTROPHILS # (AUTO) 6.1 K/uL (1.8-7.7); NEUTROPHILS % (AUTO) 70.4 % (40.0-70.0); PLATELET COUNT (AUTO) 237 K/uL (130-430); RED BLOOD CELL COUNT(AUTO) 4.85 MIL/uL (4.2-6.2); RED CELL DISTRIBUTION WIDTH 17.2 % (9.0-15.0); WHITE BLOOD COUNT (AUTO) 8.7 K/uL (4.8-10.8)
[2020-07-27 13:26] LABS: BILIRUBIN,URINE NEGATIVE (NEGATIVE); BLOOD, URINE NEGATIVE (NEGATIVE); CLARITY/URINE CLEAR (CLEAR); COLOR,URINE YELLOW (YELLOW); GLUCOSE,URINE NEGATIVE (NEGATIVE); KETONES,URINE TRACE (NEGATIVE); LEUKOCYTE ESTERASE ,URINE NEGATIVE (NEGATIVE); NITRITE, URINE NEGATIVE (NEGATIVE); PROTEIN URINE NEGATIVE (NEGATIVE); UROBILINOGEN,URINE 0.2 (0.2-1.0)
[2020-07-27 13:31] LABS: CALCIUM 8.9 mg/dL (8.4-11.0); CREATININE 0.72 mg/dL (0.55-1.30); POTASSIUM 3.9 mmol/L (3.5-5.1)
[2020-07-27 13:33] LABS: BARBITURATE, URINE NEGATIVE (NEG <=200); BENZODIAZEPINE, URINE POSITIVE (NEG <=150); CANNABINOID, URINE NEGATIVE (NEG <=50); COCAINE, URINE NEGATIVE (NEG <=150); METHAMPHETAMINES SCREEN,URINE NEGATIVE (NEG <=500); OPIATE, URINE NEGATIVE (NEG <=100); PHENCYCLIDINE SCREEN,URINE NEGATIVE (NEG <=25); UR TRICYCLIC ANTIDEPRESSANTS NEGATIVE (NEG <=300); URINE AMPHETAMINE NEGATIVE (NEG <=500); URINE METHADONE POSITIVE (NEG <=200); URINE OXYCODONE SCREEN NEGATIVE (NEG <=100); URINE PROPOXYPHENE SCREEN NEGATIVE (NEG <=300)
[2020-07-27 13:39] LABS: INR 0.9 (0.8-1.2); PROTHROMBIN TIME 9.5 SECS (9.5-12.5)
[~2020-08-02] VITALS: Ht 170.2 cm; Wt 93.0 kg
[2020-08-02] MEDS ORDERED: CEFAZOLIN SOD 1 GM in D5W 50 ML IV ONE (07:00)
[2020-08-02] MEDS ORDERED: POLYMYXIN 500,000/BACIT.10,000 UNITS in NS IRR 1 L IR ONE (07:07)
[2020-08-02] MEDS ORDERED: BUPIVACAINE LIPOSOME/PF 266 MG/20 ML VIAL INFIL ONE ×2 (07:08→07:55)
[2020-08-02 07:14] LABS: HCG,QUAL RESULT NEGATIVE (NEGATIVE)
[2020-08-02] MEDS ORDERED: SEVOFLURANE 15 MIN GAS INH ONE (07:55)
[2020-08-02] MEDS ORDERED: DEXAMETHASONE SOD PHOSPHATE 4 MG/ML VIAL IVP ONE (07:55)
[2020-08-02] MEDS ORDERED: TRANEXAMIC ACID 1,000 MG/10 ML VIAL IV ONE (07:55)
[2020-08-02] MEDS ORDERED: fentaNYL CITRATE/PF 100 MCG/2 ML AMP IVP ONE (07:55)
[2020-08-02] MEDS ORDERED: ONDANSETRON HCL 4 MG/2 ML VIAL IVP ONE (07:55)
[2020-08-02] MEDS ORDERED: BUPIVACAINE /EPINEPHRINE/PF 0.5% 30 ML VIAL INJ ONE (07:55)
[2020-08-02] MEDS ORDERED: MORPHINE SULFATE 10 MG/ML VIAL IVP ONE (07:55)
[2020-08-02] MEDS ORDERED: BUPIVACAINE /PF 0.75% 10 ML VIAL INJ ONE (07:55)
[2020-08-02] MEDS ORDERED: PROPOFOL 200MG/ 20ML VIAL (DIPRIVAN) IV ONE (07:55)
[2020-08-02] MEDS ORDERED: NS 1000 ML IV.SOLN IV ONE (07:55)
[2020-08-02] MEDS ORDERED: LR 500 ML IV.SOLN IV ONE (07:55)
[2020-08-02] MEDS ORDERED: MIDAZOLAM HCL 5 MG/5 ML VIAL IVP ONE (07:55)
[2020-08-02] MEDS ORDERED: MEPERIDINE HCL/PF 25 MG/ML DISP.SYRIN IVP PRN (09:30)
[2020-08-02] MEDS ORDERED: HYDROmorphone 1 MG/ML INJ. CARTRIDGE IVP PRN ×3 (09:30→13:45)
[2020-08-02] MEDS ORDERED: METOCLOPRAMIDE HCL 10 MG/2 ML VIAL IVP PRN ×2 (09:30→13:45)
[2020-08-02] MEDS ORDERED: KETOROLAC TROMETHAMINE 30 MG VIAL IVP PRN (09:30)
[2020-08-02] MEDS ORDERED: ONDANSETRON HCL 4 MG/2 ML VIAL IVP PRN ×2 (09:30→13:45)
[2020-08-02] MEDS ORDERED: LR 1,000 ML IV SCH (09:30)
[2020-08-02] MEDS ORDERED: D5/0.45 NS 1,000 ML IV ONE (10:15)
[2020-08-02] MEDS ORDERED: BISACODYL 10 MG/SUPPOSITORY RC PRN (10:15)
[2020-08-02] MEDS ORDERED: MORPHINE SULFATE 10 MG/ML VIAL IM PRN (10:15)
[2020-08-02] MEDS ORDERED: HYDROcodone/ACETAMIN 7.5-325 MG TAB PO PRN (10:15)
[2020-08-02] MEDS ORDERED: ACETAMINOPHEN 325 MG TABLET PO PRN ×2 (10:15→13:45)
[2020-08-02] MEDS ORDERED: CEFAZOLIN 1 GM IVPB PREMIX 50 ML IV SCH (11:00)
[2020-08-02 11:25] VITALS: BP_SYST 127
[2020-08-02 11:47] VITALS: BP_SYST 131
[2020-08-02] MEDS ORDERED: HYDROmorphone 2 MG/ML VIAL ONE (13:48)
[2020-08-02] MEDS: HYDROmorphone 2 MG/ML VIAL IVP PRN ×2 (13:53→17:48)
[2020-08-02] MEDS ORDERED: METHADONE HCL 10 MG TABLET PO ONE (14:00)
[2020-08-02] MEDS ORDERED: MET10 PO (15:06)
[2020-08-02] MEDS ORDERED: SUMA100T PO (15:06)
[2020-08-02] MEDS ORDERED: ASCO500T20 PO (15:06)
[2020-08-02] MEDS ORDERED: MULT-1117 PO (15:06)
[2020-08-02] MEDS ORDERED: LISI-209 PO (15:06)
[2020-08-02] MEDS ORDERED: ALBMDI INH (15:06)
[2020-08-02] MEDS ORDERED: FERR236T3 PO (15:06)
[2020-08-02] MEDS ORDERED: ZOLP10TA2 PO (15:06)
[2020-08-02] MEDS ORDERED: ALPR0.5T PO (15:06)
[2020-08-02] MEDS ORDERED: HYDR2TAB4 PO (15:06)
[2020-08-02] MEDS: CEFAZOLIN 1 GM IVPB PREMIX 50 ML IV SCH ×2 (15:30→21:03)
[2020-08-02 18:28] VITALS: BP_SYST 144
[2020-08-02] MEDS: MORPHINE SULFATE 10 MG/ML VIAL IM PRN ×2 (20:44→20:58)
[2020-08-02] MEDS: MORPHINE SULFATE 10 MG/ML VIAL IVP PRN (23:55)
[2020-08-03] VITALS (7 sets, daily range): BP systolic 125–159
[2020-08-03] MEDS ORDERED: ALPRAZolam 0.25 MG TABLET PO PRN
[2020-08-03] MEDS: ZOLPIDEM TARTRATE 5 MG TABLET PO PRN ×2 (00:53→21:52)
[2020-08-03] MEDS: MORPHINE SULFATE 10 MG/ML VIAL IVP PRN ×3 (03:17→09:07)
[2020-08-03] MEDS ORDERED: PROMETHAZINE INJ.Non-Formulary 25 MG/ML AMP IM PRN (08:00)
[2020-08-03] MEDS: DIPHENHYDRAMINE INJ 50 MG/ML VIAL IM PRN ×2 (09:02→14:26)
[2020-08-03] MEDS: METHADONE HCL 10 MG TABLET PO SCH (09:08)
[2020-08-03] MEDS: RIVAROXABAN 10 MG TABLET PO SCH (09:08)
[2020-08-03 10:57] LABS: BASOPHILS % (AUTO) 0.3 % (0.0-2.0); HEMOGLOBIN 11.2 g/dL (12.0-16.0); LYMPHOCYTES # (AUTO) 1.3 K/uL (1.0-5.5); LYMPHOCYTES % (AUTO) 10.4 % (20.5-51.5); MEAN CORPUSCULAR HEMOGLOBIN 27 pg (27-31); MEAN CORPUSCULAR HGB CONC 34 % (32-36); MEAN CORPUSCULAR VOLUME 81 fL (79.0-98.0); MONOCYTES # (AUTO) 1.5 K/uL (0.0-1.0); MONOCYTES % (AUTO) 11.5 % (1.7-9.3); NEUTROPHILS # (AUTO) 9.9 K/uL (1.8-7.7); NEUTROPHILS % (AUTO) 77.8 % (40.0-70.0); PLATELET COUNT (AUTO) 184 K/uL (130-430); RED CELL DISTRIBUTION WIDTH 16.1 % (9.0-15.0); WHITE BLOOD COUNT (AUTO) 12.7 K/uL (4.8-10.8)
[2020-08-03 11:11] LABS: CALCIUM 8.3 mg/dL (8.4-11.0); CREATININE 0.77 mg/dL (0.55-1.30); POTASSIUM 3.3 mmol/L (3.5-5.1)
[2020-08-03 11:18] LABS: ALBUMIN 3.3 g/dL (3.4-4.8); TOTAL BILIRUBIN 0.5 mg/dL (0.0-1.0)
[2020-08-03] MEDS: HYDROmorphone 2 MG/ML VIAL IVP PRN ×3 (14:27→21:02)
[2020-08-04 00:30] VITALS: BP_SYST 128
[2020-08-04] MEDS: HYDROmorphone 2 MG/ML VIAL IVP PRN ×3 (00:43→07:53)
[2020-08-04 07:50] VITALS: BP_SYST 162
[2020-08-04] MEDS: DIPHENHYDRAMINE INJ 50 MG/ML VIAL IM PRN ×4 (07:53→20:55)
[2020-08-04] MEDS ORDERED: MORPHINE 4 MG INJ. 4 MG/ML VIAL IVP PRN (08:15)
[2020-08-04] MEDS: MORPHINE 4 MG INJ. 4 MG/ML VIAL IVP PRN ×4 (09:29→20:54)
[2020-08-04] MEDS: METHADONE HCL 10 MG TABLET PO SCH (09:29)
[2020-08-04] MEDS: RIVAROXABAN 10 MG TABLET PO SCH (09:30)
[2020-08-04 12:34] VITALS: BP_SYST 137
[2020-08-04 16:01] VITALS: BP_SYST 135
[2020-08-04 20:00] VITALS: BP_SYST 132
[2020-08-04] MEDS: ZOLPIDEM TARTRATE 5 MG TABLET PO PRN (22:19)
[2020-08-05] MEDS: MORPHINE 4 MG INJ. 4 MG/ML VIAL IVP PRN ×3 (00:14→06:35)
[2020-08-05] MEDS: DIPHENHYDRAMINE INJ 50 MG/ML VIAL IM PRN ×3 (00:14→06:32)
[2020-08-05 00:53] VITALS: BP_SYST 134
[2020-08-05 07:50] VITALS: BP_SYST 128
[2020-08-05] MEDS: METHADONE HCL 10 MG TABLET PO SCH (09:53)
[2020-08-05] MEDS: RIVAROXABAN 10 MG TABLET PO SCH (09:54)
[2020-08-05 12:03] VITALS: BP_SYST 122
[2020-08-05] MEDS ORDERED: ECO325 PO (14:44)
[2020-08-05 14:47] VITALS: BP_SYST 122
== END 2020-08-05 15:20 | disposition home health service (06) | DRG 470 ==
LOC: SMU 06:35 → STU 08-03 11:18
PROVIDERS: ADMIT Orthopaedic Surgery; ATTEND Orthopaedic Surgery
PROC: 0SRC0J9 Replacement of Right Knee Joint with Synthetic Substitute, Cemented, Open Approach (ICD-10-PCS; principal; 2020-08-02 07:55)
DX: M17.11 Unilateral primary osteoarthritis, right knee (principal); F11.20 Opioid dependence, uncomplicated; G89.29 Other chronic pain; Z96.659 Presence of unspecified artificial knee joint; I10 Essential (primary) hypertension; Z20.822 Contact with and (suspected) exposure to COVID-19; Z79.01 Long term (current) use of anticoagulants; Z88.8 Allergy status to other drugs, medicaments and biological substances; Z79.899 Other long term (current) drug therapy
CPT/HCPCS: 36415; 71046-TC; 80048; 80053; 80307; 81003; 84703; 85025; 85610-TC; 85730-TC; 87081; 88305; 88311; 93005; 97039; 97110-GP; 97116-GP; 97163; 97530-GP; C1713; C1776; C9290; G0378; J0690; J1100; J1170; J1200; J2250; J2270; J2405; J2704; J3010; J3490; J7030; J7060; J7120; U0003

== ENCOUNTER 2020-08-26 11:10 | Outpatient (CLI) | payer OTHER ==
[~2020-08-26 11:10] MED LIST changes: +ALBMDI INH; +ALPR0.5T PO; +ASCO500T20 PO; +ECO325 PO; +FERR236T3 PO; +HYDR2TAB4 PO; +LISI-209 PO; +MET10 PO; +MULT-1117 PO; -SOM350 PO; +SUMA100T PO; +ZOLP10TA2 PO
[2020-08-26 11:54] LABS: BASOPHILS % (AUTO) 0.6 % (0.0-2.0); EOSINOPHILS # (AUTO) 0.1 K/uL (0.0-0.4); EOSINOPHILS % (AUTO) 1.5 % (0.0-4.0); HEMATOCRIT 35.8 % (36-48); HEMOGLOBIN 11.7 g/dL (12.0-16.0); LYMPHOCYTES % (AUTO) 14.2 % (20.5-51.5); MEAN CORPUSCULAR HEMOGLOBIN 28 pg (27-31); MEAN CORPUSCULAR HGB CONC 33 % (32-36); MEAN CORPUSCULAR VOLUME 84 fL (79.0-98.0); MONOCYTES # (AUTO) 0.5 K/uL (0.0-1.0); MONOCYTES % (AUTO) 6.9 % (1.7-9.3); NEUTROPHILS # (AUTO) 5.5 K/uL (1.8-7.7); NEUTROPHILS % (AUTO) 76.8 % (40.0-70.0); PLATELET COUNT (AUTO) 234 K/uL (130-430); RED BLOOD CELL COUNT(AUTO) 4.27 MIL/uL (4.2-6.2); WHITE BLOOD COUNT (AUTO) 7.1 K/uL (4.8-10.8)
[2020-08-26 12:11] LABS: ALBUMIN 3.5 g/dL (3.4-4.8); CALCIUM 9.2 mg/dL (8.4-11.0); CREATININE 0.78 mg/dL (0.55-1.30); POTASSIUM 4.9 mmol/L (3.5-5.1); TOTAL BILIRUBIN 0.5 mg/dL (0.0-1.0)
[2020-08-27 05:07] LABS: HEMOGLOBIN A1C 5.4 % (4.8-5.6)
== END 2020-08-26 16:00 | disposition home or self-care (01) ==
LOC: SLB 11:10
PROVIDERS: ATTEND Internal Medicine
DX: R73.9 Hyperglycemia, unspecified (principal); D64.9 Anemia, unspecified
CPT/HCPCS: 36415; 80053; 82306; 83036; 85025

== ENCOUNTER 2020-09-22 11:18 | Outpatient (CLI) | payer OTHER ==
[2020-09-22 12:57] LABS: BARBITURATE, URINE NEGATIVE (NEG <=200); BENZODIAZEPINE, URINE POSITIVE (NEG <=150); CANNABINOID, URINE NEGATIVE (NEG <=50); COCAINE, URINE NEGATIVE (NEG <=150); METHAMPHETAMINES SCREEN,URINE NEGATIVE (NEG <=500); OPIATE, URINE POSITIVE (NEG <=100); PHENCYCLIDINE SCREEN,URINE NEGATIVE (NEG <=25); UR TRICYCLIC ANTIDEPRESSANTS NEGATIVE (NEG <=300); URINE AMPHETAMINE NEGATIVE (NEG <=500); URINE METHADONE POSITIVE (NEG <=200); URINE OXYCODONE SCREEN NEGATIVE (NEG <=100); URINE PROPOXYPHENE SCREEN NEGATIVE (NEG <=300)
== END 2020-09-22 20:15 | disposition home or self-care (01) ==
LOC: SLB 11:18
PROVIDERS: ATTEND Anesthesiology Pain Medicine
DX: M54.5 Low back pain (principal)
CPT/HCPCS: 80307

== ENCOUNTER 2020-10-19 11:57 | Emergency (ER) | payer OTHER, SELFPAY ==
[~2020-10-19] VITALS: Ht 170.2 cm; Wt 83.5 kg
[2020-10-19 12:10] VITALS: BP_SYST 132
--- NOTE | 2020-10-19 12:10 | NUR ---
PT TO REMAIN IN TENT FOR TREATMENT. V/S STABLE.
--- NOTE | 2020-10-19 12:15 | NUR ---
ER at bedside examining patient.
[2020-10-19] MEDS ORDERED: ACET325T PO (12:28)
--- NOTE | 2020-10-19 12:30 | NUR ---
Pt came to ER with complaint of sinus pressure and fever at home of 100.4 treated with motrin. Pt is non febrile and AAOX4 speaking full sentences. No distress noted
--- NOTE | 2020-10-19 13:10 | NUR ---
Covid swab collected and sent to lab.
--- NOTE | 2020-10-19 13:13 | NUR ---
Patient given written and verbal discharge instructions and verbalizes understanding. ER MD discussed with patient the results and treatment provided. Patient in stable condition. ID arm band removed. Rx of Tylenol given. Patient educated on pain management and to follow up with PMD. Pain Scale 0/10. Opportunity for questions provided and answered. Medication side effect fact sheet provided.
[2020-10-19 13:17] VITALS: BP_SYST 132
== END 2020-10-19 13:13 | disposition home or self-care (01) ==
LOC: SED 11:57
DX: U07.1 COVID-19 (principal); J06.9 Acute upper respiratory infection, unspecified; I10 Essential (primary) hypertension; J45.909 Unspecified asthma, uncomplicated; Z88.8 Allergy status to other drugs, medicaments and biological substances; Z79.899 Other long term (current) drug therapy
CPT/HCPCS: 99283; C9803; U0003

== ENCOUNTER 2021-03-22 17:02 | Outpatient (CLI) | payer OTHER, SELFPAY ==
[~2021-03-22 17:02] MED LIST changes: +ACET325T PO; -MET10 PO; +METH-797 PO
[2021-03-22 18:01] LABS: BARBITURATE, URINE NEGATIVE (NEG <=200); BENZODIAZEPINE, URINE NEGATIVE (NEG <=150); CANNABINOID, URINE NEGATIVE (NEG <=50); COCAINE, URINE NEGATIVE (NEG <=150); METHAMPHETAMINES SCREEN,URINE NEGATIVE (NEG <=500); OPIATE, URINE POSITIVE (NEG <=100); PHENCYCLIDINE SCREEN,URINE NEGATIVE (NEG <=25); URINE AMPHETAMINE NEGATIVE (NEG <=500)
[2021-03-22 18:02] LABS: UR TRICYCLIC ANTIDEPRESSANTS NEGATIVE (NEG <=300); URINE METHADONE POSITIVE (NEG <=200); URINE OXYCODONE SCREEN NEGATIVE (NEG <=100); URINE PROPOXYPHENE SCREEN NEGATIVE (NEG <=300)
== END 2021-03-23 14:10 | disposition home or self-care (01) ==
LOC: SLB 17:02
PROVIDERS: ATTEND Anesthesiology Pain Medicine
DX: Z02.83 Encounter for blood-alcohol and blood-drug test (principal)
CPT/HCPCS: 80307

== ENCOUNTER 2021-07-05 14:28 | Outpatient (CLI) | payer OTHER ==
[2021-07-05 15:05] LABS: BASOPHILS # (AUTO) 0.1 K/uL (0.0-0.2); BASOPHILS % (AUTO) 0.9 % (0.0-2.0); EOSINOPHILS % (AUTO) 0.7 % (0.0-4.0); HEMATOCRIT 34.9 % (36-48); HEMOGLOBIN 11.6 g/dL (12.0-16.0); LYMPHOCYTES # (AUTO) 1.6 K/uL (1.0-5.5); LYMPHOCYTES % (AUTO) 23.5 % (20.5-51.5); MEAN CORPUSCULAR HEMOGLOBIN 26 pg (27-31); MEAN CORPUSCULAR HGB CONC 33 % (32-36); MEAN CORPUSCULAR VOLUME 77 fL (79.0-98.0); MONOCYTES # (AUTO) 0.6 K/uL (0.0-1.0); MONOCYTES % (AUTO) 8.2 % (1.7-9.3); NEUTROPHILS # (AUTO) 4.6 K/uL (1.8-7.7); NEUTROPHILS % (AUTO) 66.7 % (40.0-70.0); PLATELET COUNT (AUTO) 224 K/uL (130-430); RED BLOOD CELL COUNT(AUTO) 4.51 MIL/uL (4.2-6.2); RED CELL DISTRIBUTION WIDTH 15.1 % (9.0-15.0); WHITE BLOOD COUNT (AUTO) 6.9 K/uL (4.8-10.8)
[2021-07-05 15:24] LABS: BILIRUBIN,URINE NEGATIVE (NEGATIVE); BLOOD, URINE NEGATIVE (NEGATIVE); COLOR,URINE YELLOW (YELLOW); GLUCOSE,URINE NEGATIVE (NEGATIVE); KETONES,URINE TRACE (NEGATIVE); LEUKOCYTE ESTERASE ,URINE NEGATIVE (NEGATIVE); NITRITE, URINE NEGATIVE (NEGATIVE); PROTEIN URINE NEGATIVE (NEGATIVE); UROBILINOGEN,URINE 0.2 (0.2-1.0)
[2021-07-05 15:49] LABS: ALBUMIN 3.8 g/dL (3.4-4.8); CALCIUM 9.2 mg/dL (8.4-11.0); CREATININE 0.59 mg/dL (0.55-1.30); POTASSIUM 4.2 mmol/L (3.5-5.1); THYROID STIMULATING HORMONE 2.31 uIu/mL (0.36-3.74)
[2021-07-05 16:07] LABS: TOTAL BILIRUBIN 0.2 mg/dL (0.0-1.0)
[2021-07-05 17:55] LABS: CLARITY/URINE HAZY (CLEAR)
[2021-07-05 18:13] LABS: RBC,URINE 0-3 /HPF (0-3)
[2021-07-05 18:14] LABS: BACTERIA,URINE MODERATE /HPF (None Seen); MUCUS,URINE 2+ /LPF (None Seen); WBC,URINE 0-3 /HPF (0-3)
[2021-07-06 04:06] LABS: HEMOGLOBIN A1C 5.5 % (4.8-5.6)
== END 2021-07-05 20:10 | disposition home or self-care (01) ==
LOC: SLB 14:28
PROVIDERS: ATTEND Internal Medicine
DX: S82.001A Unspecified fracture of right patella, initial encounter for closed fracture (principal); I10 Essential (primary) hypertension; E56.9 Vitamin deficiency, unspecified; R73.9 Hyperglycemia, unspecified; X58.XXXA Exposure to other specified factors, initial encounter; Y93.89 Activity, other specified; Y92.89 Other specified places as the place of occurrence of the external cause; Y99.8 Other external cause status
CPT/HCPCS: 36415; 73564; 80053; 80061; 81000; 82306; 82607; 83036; 84443; 85025; 87086

== ENCOUNTER 2021-09-13 10:31 | Emergency (ER) | payer OTHER ==
[~2021-09-13] VITALS: Ht 170.2 cm; Wt 86.2 kg
[2021-09-13 10:57] VITALS: BP_SYST 145
[2021-09-13] MEDS ORDERED: HYDROcodone/ACETAMIN 5-325 MG TAB (NORCO/ VICODIN) PO ONE (11:15)
[2021-09-13] MEDS ORDERED: IBUPROFEN 800 MG TABLET PO ONE (11:15)
[2021-09-13] MEDS ORDERED: IBUP-1969 PO (12:27)
[2021-09-13] MEDS ORDERED: SOM350 PO (12:28)
[2021-09-13] MEDS ORDERED: DILTIAZEM HCL 60 MG TABLET PO ONE (12:45)
[2021-09-13] MEDS ORDERED: dilTIAZem HCL IVP 5 MG/ML VIAL IVP ONE (12:45)
[2021-09-13 13:07] VITALS: BP_SYST 145
== END 2021-09-13 13:07 | disposition home or self-care (01) ==
LOC: SED 10:31
DX: S13.4XXA Sprain of ligaments of cervical spine, initial encounter (principal); S83.91XA Sprain of unspecified site of right knee, initial encounter; S00.93XA Contusion of unspecified part of head, initial encounter; J45.909 Unspecified asthma, uncomplicated; I10 Essential (primary) hypertension; Z88.8 Allergy status to other drugs, medicaments and biological substances; Z79.899 Other long term (current) drug therapy; V43.62XA Car passenger injured in collision with other type car in traffic accident, initial encounter; Y93.89 Activity, other specified; Y92.89 Other specified places as the place of occurrence of the external cause; Y99.8 Other external cause status
CPT/HCPCS: 70450-TC; 72125-TC; 73560-TC; 76376; 81025; 99284

== ENCOUNTER 2022-03-07 14:06 | Outpatient (CLI) | payer OTHER ==
[~2022-03-07 14:06] MED LIST changes: +IBUP-1969 PO; +SOM350 PO
[2022-03-07 15:22] LABS: BARBITURATE, URINE NEGATIVE (NEG <=200); METHAMPHETAMINES SCREEN,URINE NEGATIVE (NEG <=500); URINE AMPHETAMINE NEGATIVE (NEG <=500); URINE METHADONE POSITIVE (NEG <=200)
[2022-03-07 15:23] LABS: BENZODIAZEPINE, URINE POSITIVE (NEG <=150); CANNABINOID, URINE NEGATIVE (NEG <=50); COCAINE, URINE NEGATIVE (NEG <=150); OPIATE, URINE POSITIVE (NEG <=100); PHENCYCLIDINE SCREEN,URINE NEGATIVE (NEG <=25); UR TRICYCLIC ANTIDEPRESSANTS NEGATIVE (NEG <=300); URINE OXYCODONE SCREEN NEGATIVE (NEG <=100); URINE PROPOXYPHENE SCREEN NEGATIVE (NEG <=300)
== END 2022-03-07 19:51 | disposition home or self-care (01) ==
LOC: SLB 14:06
PROVIDERS: ATTEND Internal Medicine
DX: M54.50 Low back pain, unspecified (principal)
CPT/HCPCS: 80307

== ENCOUNTER 2022-03-16 06:27 | Day surgery (SDC) | payer OTHER ==
[2022-03-14 12:10] LABS: HCG,QUAL RESULT NEGATIVE (NEGATIVE)
[~2022-03-16] VITALS: Ht 170.2 cm; Wt 86.2 kg
[2022-03-16] MEDS ORDERED: MEPERIDINE HCL/PF 25 MG/ML DISP.SYRIN ONE (07:46)
[2022-03-16] MEDS ORDERED: MIDAZOLAM HCL 5 MG/5 ML VIAL ONE ×2 (07:46→09:20)
[2022-03-16] MEDS ORDERED: ONDANSETRON HCL 4 MG/2 ML VIAL ONE (09:15)
[2022-03-16] MEDS ORDERED: DIPHENHYDRAMINE INJ 50 MG/ML VIAL ONE (09:17)
[2022-03-16 11:25] VITALS: BP_SYST 136
== END 2022-03-16 10:45 | disposition home or self-care (01) ==
LOC: SDS 06:27 → SMU 06:28 → SDS 10:45
PROVIDERS: ATTEND Internal Medicine Gastroenterology
DX: Z12.11 Encounter for screening for malignant neoplasm of colon (principal); K64.9 Unspecified hemorrhoids; Z20.822 Contact with and (suspected) exposure to COVID-19
CPT/HCPCS: 84703; 36415 ×2; 45378; 87426; U0003; G0378; J1200; J2250; J2405; J2175

== ENCOUNTER 2022-07-01 10:31 | Outpatient (CLI) | payer OTHER ==
[2022-07-01 11:25] LABS: BASOPHILS % (AUTO) 0.7 % (0.0-2.0); EOSINOPHILS # (AUTO) 0.1 K/uL (0.0-0.4); EOSINOPHILS % (AUTO) 1.5 % (0.0-4.0); HEMATOCRIT 38.6 % (36-48); HEMOGLOBIN 12.7 g/dL (12.0-16.0); LYMPHOCYTES # (AUTO) 1.5 K/uL (1.0-5.5); MEAN CORPUSCULAR HEMOGLOBIN 27 pg (27-31); MEAN CORPUSCULAR HGB CONC 33 % (32-36); MEAN CORPUSCULAR VOLUME 81 fL (79.0-98.0); MONOCYTES # (AUTO) 0.5 K/uL (0.0-1.0); MONOCYTES % (AUTO) 8.8 % (1.7-9.3); NEUTROPHILS # (AUTO) 3.8 K/uL (1.8-7.7); PLATELET COUNT (AUTO) 206 K/uL (130-430); RED BLOOD CELL COUNT(AUTO) 4.78 MIL/uL (4.2-6.2); RED CELL DISTRIBUTION WIDTH 15.9 % (9.0-15.0)
[2022-07-01 11:52] LABS: ALBUMIN 3.7 g/dL (3.4-4.8); CALCIUM 8.9 mg/dL (8.4-11.0); CREATININE 0.62 mg/dL (0.55-1.30); THYROID STIMULATING HORMONE 1.47 uIu/mL (0.34-4.82); TOTAL BILIRUBIN 0.4 mg/dL (0.0-1.0)
[2022-07-01 12:02] LABS: BARBITURATE, URINE NEGATIVE (NEG <=200); BENZODIAZEPINE, URINE NEGATIVE (NEG <=150); CANNABINOID, URINE NEGATIVE (NEG <=50); COCAINE, URINE NEGATIVE (NEG <=150); METHAMPHETAMINES SCREEN,URINE NEGATIVE (NEG <=500); OPIATE, URINE POSITIVE (NEG <=100); PHENCYCLIDINE SCREEN,URINE NEGATIVE (NEG <=25); URINE AMPHETAMINE NEGATIVE (NEG <=500); URINE OXYCODONE SCREEN NEGATIVE (NEG <=100); URINE PROPOXYPHENE SCREEN NEGATIVE (NEG <=300)
[2022-07-01 12:03] LABS: UR TRICYCLIC ANTIDEPRESSANTS NEGATIVE (NEG <=300)
[2022-07-01 12:05] LABS: URINE METHADONE POSITIVE (NEG <=200)
== END 2022-07-01 17:29 | disposition home or self-care (01) ==
LOC: SLB 10:31
PROVIDERS: ATTEND Internal Medicine
DX: I10 Essential (primary) hypertension (principal); E66.09 Other obesity due to excess calories; R73.9 Hyperglycemia, unspecified; E55.9 Vitamin D deficiency, unspecified; E56.9 Vitamin deficiency, unspecified; M54.16 Radiculopathy, lumbar region; J45.909 Unspecified asthma, uncomplicated; M54.50 Low back pain, unspecified
CPT/HCPCS: 36415; 80053; 80061; 80307; 82306; 82607; 83037; 84443; 85025

== ENCOUNTER 2022-09-07 14:26 | Outpatient (CLI) | payer OTHER ==
[2022-09-08 08:06] LABS: ESTRADIOL <5.0 pg/mL (.); FOLLICLE STIMULATION HORMONE 39.8 mIU/mL (.)
== END 2022-09-07 18:31 | disposition home or self-care (01) ==
LOC: SUS 14:26
PROVIDERS: ATTEND Specialist
DX: Z12.31 Encounter for screening mammogram for malignant neoplasm of breast (principal); N92.6 Irregular menstruation, unspecified; N88.8 Other specified noninflammatory disorders of cervix uteri
CPT/HCPCS: 36415; 76856-TC; 77067; 82670; 83001

== ENCOUNTER 2022-09-19 14:05 | Outpatient (CLI) | payer OTHER ==
[2022-09-19 15:10] LABS: BARBITURATE, URINE NEGATIVE (NEG <=200); BENZODIAZEPINE, URINE POSITIVE (NEG <=150); CANNABINOID, URINE NEGATIVE (NEG <=50); COCAINE, URINE NEGATIVE (NEG <=150); METHAMPHETAMINES SCREEN,URINE NEGATIVE (NEG <=500); OPIATE, URINE POSITIVE (NEG <=100); PHENCYCLIDINE SCREEN,URINE NEGATIVE (NEG <=25); URINE AMPHETAMINE NEGATIVE (NEG <=500); URINE METHADONE POSITIVE (NEG <=200); URINE OXYCODONE SCREEN NEGATIVE (NEG <=100); URINE PROPOXYPHENE SCREEN NEGATIVE (NEG <=300)
[2022-09-19 15:11] LABS: UR TRICYCLIC ANTIDEPRESSANTS NEGATIVE (NEG <=300)
== END 2022-09-19 19:24 | disposition short-term general hospital (02) ==
LOC: SLB 14:05
PROVIDERS: ATTEND Physician Assistant
DX: M54.50 Low back pain, unspecified (principal)
CPT/HCPCS: 80307

== ENCOUNTER 2022-10-17 12:42 | Outpatient (CLI) | payer OTHER | END 2022-10-17 20:17 | disposition home or self-care (01) | LOC: SCA 12:42 | PROVIDERS: ATTEND Internal Medicine | DX: I11.9 Hypertensive heart disease without heart failure (principal) | CPT/HCPCS: 93005; 93306 ==

== ENCOUNTER 2022-10-24 11:56 | Outpatient (CLI) | payer OTHER | END 2022-10-24 20:26 | disposition home or self-care (01) | LOC: SRD 11:56 | PROVIDERS: ATTEND Student in an Organized Health Care Education/Training Program | DX: M25.461 Effusion, right knee (principal) | CPT/HCPCS: 73564 ==

== ENCOUNTER 2023-01-01 10:07 | Emergency (ER) | payer OTHER ==
[~2023-01-01] VITALS: Ht 162.6 cm; Wt 88.5 kg
[2023-01-01 10:10] VITALS: BP_SYST 140; PULSE 82; RESP 20; TEMP 97.5; O2SAT 99
[2023-01-01] MEDS ORDERED: PSEU30TA36 PO (11:39)
[2023-01-01] MEDS ORDERED: IBUP-1969 PO (11:39)
[2023-01-01 11:57] VITALS: BP_SYST 128; PULSE 72; RESP 15; TEMP 98.8; O2SAT 97
== END 2023-01-01 11:56 | disposition home or self-care (01) ==
LOC: SED 10:07
DX: J02.8 Acute pharyngitis due to other specified organisms (principal); J45.909 Unspecified asthma, uncomplicated; I10 Essential (primary) hypertension; Z88.8 Allergy status to other drugs, medicaments and biological substances; Z79.899 Other long term (current) drug therapy
CPT/HCPCS: 36415; 70360-TC; 86403; 87081; 99284

== ENCOUNTER 2023-03-24 11:21 | Outpatient (CLI) | payer OTHER ==
[~2023-03-24 11:21] MED LIST changes: +PSEU30TA36 PO
[2023-03-24 12:14] LABS: BASOPHILS # (AUTO) 0.1 K/uL (0.0-0.2); EOSINOPHILS # (AUTO) 0.1 K/uL (0.0-0.4); EOSINOPHILS % (AUTO) 1.6 % (0.0-4.0); HEMATOCRIT 38.9 % (36-48); HEMOGLOBIN 13.1 g/dL (12.0-16.0); LYMPHOCYTES # (AUTO) 1.3 K/uL (1.0-5.5); LYMPHOCYTES % (AUTO) 24.9 % (20.5-51.5); MEAN CORPUSCULAR HEMOGLOBIN 27 pg (27-31); MEAN CORPUSCULAR HGB CONC 34 % (32-36); MEAN CORPUSCULAR VOLUME 81 fL (79.0-98.0); MONOCYTES # (AUTO) 0.3 K/uL (0.0-1.0); MONOCYTES % (AUTO) 6.4 % (1.7-9.3); NEUTROPHILS # (AUTO) 3.5 K/uL (1.8-7.7); NEUTROPHILS % (AUTO) 66.1 % (40.0-70.0); PLATELET COUNT (AUTO) 248 K/uL (130-430); RED CELL DISTRIBUTION WIDTH 14.8 % (9.0-15.0); WHITE BLOOD COUNT (AUTO) 5.3 K/uL (4.8-10.8)
[2023-03-24 12:34] LABS: HEMOGLOBIN A1C 5.53 % (<5.7)
[2023-03-24 12:38] LABS: ALBUMIN 4.1 g/dL (3.4-4.8); CALCIUM 9.4 mg/dL (8.4-11.0); CREATININE 0.64 mg/dL (0.55-1.30); POTASSIUM 4.2 mmol/L (3.5-5.1); THYROID STIMULATING HORMONE 1.55 uIu/mL (0.34-4.82); TOTAL BILIRUBIN 0.5 mg/dL (0.0-1.0); TOTAL PROTEIN, SERUM 7.7 g/dL (6.4-8.3)
== END 2023-03-24 19:34 | disposition home or self-care (01) ==
LOC: SLB 11:21
PROVIDERS: ATTEND Internal Medicine
DX: I10 Essential (primary) hypertension (principal); E78.5 Hyperlipidemia, unspecified; R73.9 Hyperglycemia, unspecified; E03.9 Hypothyroidism, unspecified; E56.9 Vitamin deficiency, unspecified
CPT/HCPCS: 36415; 80053; 80061; 82306; 82607; 83037; 84443; 85025

== ENCOUNTER 2023-05-02 09:35 | Inpatient (IN) | payer OTHER ==
[~2023-05-02] VITALS: Ht 170.2 cm; Wt 88.5 kg
[2023-05-02 09:40] VITALS: BP_SYST 154; PULSE 73; RESP 19; TEMP 98.3; O2SAT 96
[2023-05-02] MEDS ORDERED: IPRATROPIUM/ALBUTEROL SULFATE 3 ML AMPUL.NEB (DUONEB) ONE (09:57)
[2023-05-02] MEDS: IPRATROPIUM BROM 0.5 MG/2.5 ML VIAL.NEB (ATROVENT) INH ONE (10:08)
[2023-05-02] MEDS: ALBUTEROL SULFATE 0.083% 2.5 MG/3 ML VIAL.NEB INH ONE ×2 (10:08→12:31)
[2023-05-02 10:21] LABS: BASOPHILS # (AUTO) 0.1 K/uL (0.0-0.2); BASOPHILS % (AUTO) 1.2 % (0.0-2.0); EOSINOPHILS # (AUTO) 0.1 K/uL (0.0-0.4); EOSINOPHILS % (AUTO) 2.8 % (0.0-4.0); HEMATOCRIT 39.5 % (36-48); HEMOGLOBIN 13.5 g/dL (12.0-16.0); LYMPHOCYTES # (AUTO) 1.2 K/uL (1.0-5.5); LYMPHOCYTES % (AUTO) 26.8 % (20.5-51.5); MEAN CORPUSCULAR HEMOGLOBIN 28 pg (27-31); MEAN CORPUSCULAR HGB CONC 34 % (32-36); MEAN CORPUSCULAR VOLUME 81 fL (79.0-98.0); MONOCYTES # (AUTO) 0.5 K/uL (0.0-1.0); MONOCYTES % (AUTO) 10.8 % (1.7-9.3); NEUTROPHILS # (AUTO) 2.6 K/uL (1.8-7.7); NEUTROPHILS % (AUTO) 58.4 % (40.0-70.0); PLATELET COUNT (AUTO) 237 K/uL (130-430); RED CELL DISTRIBUTION WIDTH 14.9 % (9.0-15.0); WHITE BLOOD COUNT (AUTO) 4.4 K/uL (4.8-10.8)
[2023-05-02 10:29] LABS: ANION GAP 8 (5-15); CALCIUM 9.2 mg/dL (8.4-11.0); CARBON DIOXIDE 27 mmol/L (23-29); CHLORIDE 106 mmol/L (98-107); CREATININE 0.63 mg/dL (0.55-1.30); GFR AFRICAN AMERICAN 127 mL/min (>90); GLUCOSE 99 mg/dL (74-106); POTASSIUM 3.8 mmol/L (3.5-5.1); SODIUM SERUM 141 mmol/L (136-145); UREA NITROGEN, BLOOD 13 mg/dL (8-21)
[2023-05-02 10:34] LABS: GFR NON AFRICAN-AMERICAN 105 mL/min (>90)
[2023-05-02 10:36] LABS: ALANINE AMINOTRANSFERASE 24 U/L (12-78); ALBUMIN 3.6 g/dL (3.4-4.8); ASPARTATE AMINOTRANSFERASE 17 U/L (10-37); BILIRUBIN,DIRECT 0.1 mg/dL (0.0-0.3); TOTAL BILIRUBIN 0.3 mg/dL (0.0-1.0); TOTAL PROTEIN, SERUM 7.5 g/dL (6.4-8.3)
[2023-05-02] MEDS: NACL 0.9% 1,000 ML IV ONE (11:10)
[2023-05-02] MEDS: methylPREDNISolone SOD SUCC/PF 62.5 MG/ML VIAL IVP ONE (11:11)
[2023-05-02 11:36] LABS: BILIRUBIN,URINE NEGATIVE (NEGATIVE); BLOOD, URINE NEGATIVE (NEGATIVE); CLARITY/URINE SLIGHTLY HAZY (CLEAR); COLOR,URINE YELLOW (YELLOW); GLUCOSE,URINE NEGATIVE (NEGATIVE); KETONES,URINE NEGATIVE (NEGATIVE); LEUKOCYTE ESTERASE ,URINE 1+ (NEGATIVE); NITRITE, URINE NEGATIVE (NEGATIVE); PROTEIN URINE NEGATIVE (NEGATIVE); UROBILINOGEN,URINE 0.2 (0.2-1.0)
[2023-05-02 11:45] LABS: BACTERIA,URINE MODERATE /HPF (None Seen); RBC,URINE 0-3 /HPF (0-3)
[2023-05-02 11:46] LABS: MUCUS,URINE 1+ /LPF (None Seen)
[2023-05-02 12:06] LABS: INFLUENZA TYPE A Negative (NEGATIVE); INFLUENZA TYPE B NEGATIVE (NEGATIVE)
[2023-05-02] MEDS: IBUPROFEN 600 MG TABLET PO ONE (13:54)
[2023-05-02] MEDS ORDERED: lisinopriL 5 MG TABLET PO SCH (14:00)
[2023-05-02] MEDS ORDERED: ACETAMINOPHEN 325 MG TABLET PO PRN (14:00)
[2023-05-02] MEDS ORDERED: NALOXONE HCL 0.4 MG/ML AMP (NARCAN) IVP PRN (14:00)
[2023-05-02] MEDS ORDERED: IBUPROFEN 600 MG TABLET PO PRN (14:00)
[2023-05-02 14:05] VITALS: PULSE 85; O2SAT 97
[2023-05-02] MEDS ORDERED: PSEUDOEPHEDRINE HCL 30 MG TABLET PO SCH (15:00)
[2023-05-02] MEDS ORDERED: ZOLP12.555 PO (15:01)
[2023-05-02] MEDS ORDERED: LISI20TA30 PO (15:01)
[2023-05-02] MEDS ORDERED: HYDR4TAB57 PO (15:01)
[2023-05-02] MEDS ORDERED: ASPI-1393 PO (15:01)
[2023-05-02] MEDS ORDERED: MAGN250T10 PO (15:04)
[2023-05-02] MEDS ORDERED: CHOL100024 PO (15:04)
[2023-05-02] MEDS ORDERED: CHOL500013 PO (15:11)
[2023-05-02] MEDS ORDERED: IPRATROPIUM/ALBUTEROL SULFATE 3 ML AMPUL.NEB (DUONEB) INH SCH (17:00)
[2023-05-02] MEDS ORDERED: cefTRIAXone 1 GM VIAL ONE (19:47)
[2023-05-02] MEDS: IPRATROPIUM/ALBUTEROL SULFATE 3 ML AMPUL.NEB (DUONEB) INH SCH (19:59)
[2023-05-02 20:08] VITALS: O2SAT 98
[2023-05-02] MEDS: cefTRIAXone 1 GM in D5W 50 ML IV SCH (20:13)
[2023-05-02] MEDS: AZITHROMYCIN 500 MG in NS 250 ML IV SCH (20:55)
[2023-05-02] MEDS: carisoprodoL 350 MG TABLET PO SCH (21:06)
[2023-05-02] MEDS: FAMOTIDINE 20 MG TABLET PO SCH (21:06)
[2023-05-02] MEDS: MAGNESIUM OXIDE 400 MG TABLET PO SCH (21:07)
[2023-05-02] MEDS: predniSONE 20 MG TABLET PO SCH (21:07)
[2023-05-02] MEDS: ZOLPIDEM TARTRATE 5 MG TABLET PO PRN (21:07)
[2023-05-02] MEDS: IBUPROFEN 600 MG TABLET PO PRN (21:08)
[2023-05-02] MEDS: ASPIRIN 325 MG TABLET (ECOTRIN) PO SCH (21:09)
[2023-05-03] VITALS (7 sets, daily range): BP systolic 138–142; PULSE 71–81; RESP 18; TEMP 97.7–98.5; O2SAT 95–98
[2023-05-03] MEDS: guaiFENesin 200 MG/CODEINE 20 MG/ 10 ML UDC PO PRN (04:27)
[2023-05-03] MEDS: MULTIVITAMINS TAB 1 TABLET PO SCH (09:11)
[2023-05-03] MEDS: lisinopriL 20 MG TABLET PO SCH (09:11)
[2023-05-03] MEDS: ASCORBIC ACID 500 MG TABLET PO SCH (09:12)
[2023-05-03] MEDS: HYDROmorphone 2 MG TAB PO SCH (09:26)
[2023-05-03] MEDS: METHADONE HCL 10 MG TABLET PO SCH ×2 (09:27→21:21)
[2023-05-03] MEDS: BENZONATATE 100 MG CAPSULE (TESSALON) PO ONE (16:44)
[2023-05-03] MEDS: ALPRAZolam 0.25 MG TABLET PO PRN (18:26)
[2023-05-03] MEDS: BENZONATATE 100 MG CAPSULE (TESSALON) PO SCH (21:21)
[2023-05-04] VITALS (11 sets, daily range): BP systolic 133–156; PULSE 69–88; RESP 17–20; TEMP 97.6–98.2; O2SAT 95–100
[2023-05-04] MEDS ORDERED: ONDANSETRON HCL 4 MG/2 ML VIAL IVP PRN (19:00)
[2023-05-04] MEDS ORDERED: PROMETHAZINE HCL/CODEINE 6.25-10 mg/5 mL UDC PO PRN (19:00)
[2023-05-04] MEDS: METOCLOPRAMIDE HCL 10 MG/2 ML VIAL IVP ONE (20:21)
[2023-05-04] MEDS: guaiFENesin 200 MG/CODEINE 20 MG/ 10 ML UDC PO PRN (21:44)
[2023-05-05] VITALS (13 sets, daily range): BP systolic 119–154; PULSE 69–109; RESP 18; TEMP 96.8–97.9; O2SAT 92–100
[2023-05-05 06:09] LABS: BASOPHILS % (AUTO) 0.2 % (0.0-2.0); HEMATOCRIT 36.9 % (36-48); HEMOGLOBIN 12.3 g/dL (12.0-16.0); LYMPHOCYTES # (AUTO) 1.4 K/uL (1.0-5.5); LYMPHOCYTES % (AUTO) 12.2 % (20.5-51.5); MEAN CORPUSCULAR HEMOGLOBIN 27 pg (27-31); MEAN CORPUSCULAR HGB CONC 33 % (32-36); MEAN CORPUSCULAR VOLUME 81 fL (79.0-98.0); MONOCYTES # (AUTO) 0.7 K/uL (0.0-1.0); MONOCYTES % (AUTO) 6.1 % (1.7-9.3); NEUTROPHILS # (AUTO) 9.1 K/uL (1.8-7.7); NEUTROPHILS % (AUTO) 81.5 % (40.0-70.0); PLATELET COUNT (AUTO) 254 K/uL (130-430); RED BLOOD CELL COUNT(AUTO) 4.54 MIL/uL (4.2-6.2); RED CELL DISTRIBUTION WIDTH 14.6 % (9.0-15.0); WHITE BLOOD COUNT (AUTO) 11.2 K/uL (4.8-10.8)
[2023-05-05 06:28] LABS: ALBUMIN 3.4 g/dL (3.4-4.8); CALCIUM 8.9 mg/dL (8.4-11.0); CREATININE 0.58 mg/dL (0.55-1.30); TOTAL BILIRUBIN 0.1 mg/dL (0.0-1.0)
[2023-05-05] MEDS: IPRATROPIUM/ALBUTEROL SULFATE 3 ML AMPUL.NEB (DUONEB) INH PRN (13:02)
[2023-05-05] MEDS: BUDESONIDE 0.5 MG/2 ML AMPUL.NEB INH ONE (15:52)
[2023-05-05] MEDS: PROMETHAZINE HCL 25 MG TABLET PO ONE (16:11)
[2023-05-05] MEDS: BUDESONIDE 0.5 MG/2 ML AMPUL.NEB INH SCH (20:07)
[2023-05-05] MEDS: PROMETHAZINE HCL 25 MG TABLET PO SCH (21:00)
[2023-05-06] VITALS (11 sets, daily range): BP systolic 120–156; PULSE 70–79; RESP 16–18; TEMP 97–98.4; O2SAT 93–100
[2023-05-06 09:41] LABS: INFLUENZA A PCR Negative (Negative); INFLUENZA B PCR Negative (Negative); NOVEL CORONAVIRUS(COVID19) NAA Negative (Negative); RSV PCR Negative (Negative)
[2023-05-07] VITALS (9 sets, daily range): BP systolic 117–157; PULSE 67–98; RESP 17–18; TEMP 97.4–98.1; O2SAT 95–100
[2023-05-08] VITALS (9 sets, daily range): BP systolic 134–158; PULSE 69–84; RESP 12–20; TEMP 97.7–98.1; O2SAT 95–100
[2023-05-09] VITALS (15 sets, daily range): BP systolic 131–156; PULSE 72–84; RESP 16–20; TEMP 96.5–98.5; O2SAT 93–98
[2023-05-09] MEDS: METOCLOPRAMIDE HCL 10 MG/2 ML VIAL IVP PRN (09:15)
[2023-05-09] MEDS ORDERED: PRED20TA PO (16:54)
[2023-05-09] MEDS ORDERED: IPRA3AMP9 INH (16:54)
[2023-05-09] MEDS ORDERED: Promethazine Hcl/Codeine PO (18:15)
[2023-05-10 00:05] VITALS: BP_SYST 125; PULSE 87; RESP 18; TEMP 96.8; O2SAT 98
[2023-05-10 07:01] VITALS: O2SAT 98
[2023-05-10 07:36] VITALS: BP_SYST 150; PULSE 62; RESP 18; TEMP 97; O2SAT 100
[2023-05-10 07:43] VITALS: O2SAT 96
[2023-05-10 10:10] VITALS: BP_SYST 159; PULSE 74; RESP 21; TEMP 96.7; O2SAT 95
[2023-05-10 10:30] VITALS: O2SAT 96
== END 2023-05-10 11:27 | disposition home or self-care (01) | DRG 189 ==
LOC: SED 09:35 → STU 13:52 → SMU 05-03 16:30
PROVIDERS: ADMIT Internal Medicine; ATTEND Internal Medicine
DX: J96.01 Acute respiratory failure with hypoxia (principal); J45.901 Unspecified asthma with (acute) exacerbation; N39.0 Urinary tract infection, site not specified; I10 Essential (primary) hypertension; F41.9 Anxiety disorder, unspecified; G89.4 Chronic pain syndrome; E66.9 Obesity, unspecified; Z20.822 Contact with and (suspected) exposure to COVID-19; Z88.8 Allergy status to other drugs, medicaments and biological substances; Z79.899 Other long term (current) drug therapy; Z79.1 Long term (current) use of non-steroidal anti-inflammatories (NSAID); Z79.82 Long term (current) use of aspirin; Z68.30 Body mass index [BMI] 30.0-30.9, adult
CPT/HCPCS: 0241U; 36415; 71045; 71250-TC; 80048; 80053; 80076; 81000; 81001; 81015; 84484; 85025; 87040; 87070; 87081; 87086; 87205; 93005; 94640; 94760; 99285; G0378; J0456; J0696; J2765; J2930; J7050; J7060; J7512; J7626; Q0169

== ENCOUNTER 2023-08-29 10:42 | Outpatient (CLI) | payer OTHER ==
[~2023-08-29 10:42] MED LIST changes: -ASCO500T20 PO; +ASPI-1393 PO; +CHOL500013 PO; -ECO325 PO; -FERR236T3 PO; -HYDR2TAB4 PO; +HYDR4TAB57 PO; +IPRA3AMP9 INH; -LISI-209 PO; +LISI20TA30 PO; +MAGN250T10 PO; +PRED20TA PO; -PSEU30TA36 PO; +Promethazine Hcl/Codeine PO; -SOM350 PO; -ZOLP10TA2 PO; +ZOLP12.555 PO
[2023-08-29 11:25] LABS: BASOPHILS % (AUTO) 0.8 % (0.0-2.0); EOSINOPHILS # (AUTO) 0.1 K/uL (0.0-0.4); EOSINOPHILS % (AUTO) 1.1 % (0.0-4.0); HEMATOCRIT 40.1 % (36-48); HEMOGLOBIN 13.4 g/dL (12.0-16.0); LYMPHOCYTES # (AUTO) 1.3 K/uL (1.0-5.5); LYMPHOCYTES % (AUTO) 22.2 % (20.5-51.5); MEAN CORPUSCULAR HEMOGLOBIN 27 pg (27-31); MEAN CORPUSCULAR HGB CONC 33 % (32-36); MEAN CORPUSCULAR VOLUME 82 fL (79.0-98.0); MONOCYTES # (AUTO) 0.4 K/uL (0.0-1.0); NEUTROPHILS # (AUTO) 4.1 K/uL (1.8-7.7); NEUTROPHILS % (AUTO) 68.9 % (40.0-70.0); PLATELET COUNT (AUTO) 245 K/uL (130-430); RED BLOOD CELL COUNT(AUTO) 4.92 MIL/uL (4.2-6.2); RED CELL DISTRIBUTION WIDTH 14.8 % (9.0-15.0); WHITE BLOOD COUNT (AUTO) 5.9 K/uL (4.8-10.8)
[2023-08-29 12:09] LABS: ALBUMIN 3.8 g/dL (3.4-4.8); CALCIUM 9.2 mg/dL (8.4-11.0); CREATININE 0.64 mg/dL (0.55-1.30); POTASSIUM 5.1 mmol/L (3.5-5.1); THYROID STIMULATING HORMONE 1.33 uIu/mL (0.34-4.82); TOTAL BILIRUBIN 0.4 mg/dL (0.0-1.0); TOTAL PROTEIN, SERUM 7.7 g/dL (6.4-8.3)
== END 2023-08-29 21:05 | disposition home or self-care (01) ==
LOC: SLB 10:42
PROVIDERS: ATTEND Internal Medicine
DX: I10 Essential (primary) hypertension (principal); E78.5 Hyperlipidemia, unspecified; E55.9 Vitamin D deficiency, unspecified; E03.9 Hypothyroidism, unspecified; E56.9 Vitamin deficiency, unspecified
CPT/HCPCS: 36415; 80053; 80061; 83037; 84443; 85025

== ENCOUNTER 2023-11-13 13:54 | Outpatient (CLI) | payer OTHER ==
[~2023-11-13 13:54] MED LIST changes: -ZOLP12.555 PO; +ZOLP12.569 PO
== END 2023-11-13 19:44 | disposition home or self-care (01) ==
LOC: SRD 13:54
PROVIDERS: ATTEND Physician Assistant
DX: M25.561 Pain in right knee (principal); Z96.651 Presence of right artificial knee joint
CPT/HCPCS: 73564

== ENCOUNTER 2023-12-03 06:53 | Outpatient (CLI) | payer OTHER ==
[2023-12-03 07:51] LABS: BARBITURATE, URINE NEGATIVE (NEG <=200); OPIATE, URINE POSITIVE (NEG <=100); URINE AMPHETAMINE NEGATIVE (NEG <=500)
[2023-12-03 07:52] LABS: BENZODIAZEPINE, URINE NEGATIVE (NEG <=150); CANNABINOID, URINE NEGATIVE (NEG <=50); COCAINE, URINE NEGATIVE (NEG <=150); METHAMPHETAMINES SCREEN,URINE NEGATIVE (NEG <=500); PHENCYCLIDINE SCREEN,URINE NEGATIVE (NEG <=25); URINE METHADONE POSITIVE (NEG <=200); URINE OXYCODONE SCREEN NEGATIVE (NEG <=100)
[2023-12-03 07:53] LABS: UR TRICYCLIC ANTIDEPRESSANTS NEGATIVE (NEG <=300)
== END 2023-12-03 20:07 | disposition home or self-care (01) ==
LOC: SLB 06:53
PROVIDERS: ATTEND Physician Assistant
DX: F11.20 Opioid dependence, uncomplicated (principal)
CPT/HCPCS: 80307